=== PATIENT | female | born 1975 | race Two or more races ===

== ENCOUNTER → 2023-08-16 | Outpatient (CLI) | payer BC ==
[2023-08-16 09:47] LABS: Basophils # (auto) 0.1 10 ^3/uL (0-0.2); Eosinophils # (auto) 0.2 10 ^3/uL (0-0.8); Eosinophils % (auto) 2.7 % (0.0-7.0); Hemoglobin 13.6 g/dL (12.2-16.2); Lymphocytes % (auto) 22.9 % (10.0-50.0); Mean Corpuscular Hemoglobin 27.8 pg (28.0-32.0); Mean Corpuscular Hgb Conc. 32.4 g/dL (32.0-36.0); Mean Corpuscular Volume 85.7 fL (80.0-100.0); Monocytes # (auto) 0.4 10 ^3/uL (0-1.3); Monocytes % (auto) 4.8 % (0.0-12.0); Neutrophils # (auto) 6.1 10 ^3/uL (1.6-8.6); Neutrophils % (auto) 68.6 % (37.0-80.0); Red Blood Cells 4.91 10^6/uL (4.0-5.20); Red Cell Distribution Width 13.7 % (11.8-14.3); White Blood Cell 8.9 10^3/uL (4.4-10.8)
== END | disposition home or self-care (01) ==
LOC: LAB 09:31
DX: D72.829 Elevated white blood cell count, unspecified (principal); R25.2 Cramp and spasm
CPT/HCPCS: 36415; 82306; 83735; 85025

== ENCOUNTER → 2023-11-05 | Outpatient (CLI) | payer BC ==
[~2023-11-05] MED LIST: ALBUTEROL SULF 2.5 MG/0.5ML(0.5%) NEB SOLN ONE
== END | disposition home or self-care (01) ==
LOC: RT 08:45
PROVIDERS: ATTEND Internal Medicine Pulmonary Disease
DX: R06.02 Shortness of breath (principal); R06.09 Other forms of dyspnea
CPT/HCPCS: 94060; 94727; 94729

== ENCOUNTER 2024-03-15 18:07 | Emergency (ER) | payer BC, OTHER ==
[~2024-03-15] VITALS: Ht 152.4 cm; Wt 76.7 kg
[2024-03-15] MEDS ORDERED: ACE3T PO (18:44)
[2024-03-15] MEDS ORDERED: CYCL-614 PO (18:44)
[2024-03-15 18:48] VITALS: BP 141/82; PULSE 95; RESP 18; TEMP 97.9; O2SAT 99
[2024-03-15] MEDS: KETOROLAC TROMETH 60MG/2ML VIAL IM ONE (18:52)
== END 2024-03-15 19:52 | disposition home or self-care (01) ==
LOC: ER 18:07
DX: S46.911A Strain of unspecified muscle, fascia and tendon at shoulder and upper arm level, right arm, initial encounter (principal); K21.9 Gastro-esophageal reflux disease without esophagitis; E78.5 Hyperlipidemia, unspecified; X50.0XXA Overexertion from strenuous movement or load, initial encounter; Y93.89 Activity, other specified; Y92.69 Other specified industrial and construction area as the place of occurrence of the external cause; Y99.8 Other external cause status
CPT/HCPCS: 73030; 96372; 99283; J1885

== ENCOUNTER → 2024-05-22 | Outpatient (CLI) | payer BC ==
[~2024-05-22] MED LIST changes: +ACE3T PO; -ALBUTEROL SULF 2.5 MG/0.5ML(0.5%) NEB SOLN ONE; +CYCL-614 PO
[2024-05-22 07:40] LABS: Chloride 105 mmol/L (98-107); Sodium 138 mmol/L (136-145)
[2024-05-22 07:41] LABS: Anion Gap 7 (5-15); Calcium 9.5 mg/dL (8.7-10.4); Carbon Dioxide 26 mmol/L (20-31)
[2024-05-22 07:46] LABS: BUN/Creatinine Ratio 11.7 (10.0-20.0); Blood Urea Nitrogen 9 mg/dL (9-23); Glucose 116 mg/dL (74-106)
== END | disposition home or self-care (01) ==
LOC: LAB 07:04
PROVIDERS: ATTEND Nurse Practitioner Family
DX: D25.9 Leiomyoma of uterus, unspecified (principal)
CPT/HCPCS: 36415; 80048

== ENCOUNTER 2024-08-22 07:18 | Inpatient (IN) | payer BC, OTHER ==
[~2024-08-22] VITALS: Ht 152.4 cm; Wt 76.2 kg
[2024-08-22 07:25] VITALS: PULSE 102; RESP 18; O2SAT 96
--- NOTE | 2024-08-22 07:50 | DVH ---
EXAM: XR Chest, 1 View CLINICAL INDICATION: near syncope TECHNIQUE: Frontal view of the chest. COMPARISON: Comparison FINDINGS: LUNGS AND PLEURAL SPACES: Unremarkable. No consolidation. No pneumothorax. HEART: Unremarkable. No cardiomegaly. MEDIASTINUM: Unremarkable. Normal mediastinal contour. BONES/JOINTS: Unremarkable. No acute fracture. OTHER FINDINGS: . None. . . .. IMPRESSION: No acute cardiopulmonary process.
--- NOTE | 2024-08-22 07:55 | DVH ---
CLINICAL INFORMATION: 48 years old, Female; near syncope. TECHNIQUE: Axial imaging was obtained through the brain without contrast. Coronal and sagittal refor matted images were obtained, reviewed, and stored. Images were reviewed in brain and bone windows. A ll CT scans at this medical facility are performed using dose modulation techniques as appropriate to a performed exam including the following: Automated exposure control was utilized; adjustment of the MA and/or KV according to patient size; and use of iterative reconstruction technique. CTDIvol = 54.78 mGy DLP = 877 mGy-cm COMPARISON: None. FINDINGS: There is no acute intracranial hemorrhage or extraaxial fluid collection. No mass effect o r midline shift. The ventricles and sulci are within normal limits in size for age. Basal cisterns a re patent. The calvarium is unremarkable. Paranasal sinuses and mastoid air cells are clear. IMPRESSION: No CT evidence of acute intracranial abnormality.
[2024-08-22] MEDS: METOCLOPRAMIDE HCL 5MG/ml INJ 2ml VIAL IV ONE (08:03)
[2024-08-22] MEDS: SODIUM CHLORIDE 0.9% 1,000 ML IV ONE (08:09)
--- NOTE | 2024-08-22 08:09 | ED.PDOC ---
HPI (NEURO) HPI Comments 48 year old female presents to the ED with chief complaint of dizziness. Patient reports that she has been experiencing dizziness for the past 2-3 days, feeling like the room is spinning, even when laying down. Patient relays that she also had a headache with associated neck pain that occurred 2 days ago that has since resolved. Patient denies any N/V/D, chest pain, SOB, or syncope. Chief Complaint: Syncope Time Seen by MD: 08:02 Primary Care Provider: VENESSA Helms Notes: Nurses Notes, Medications, Allergies Information Source: Patient Mode of Arrival: Ambulatory Severity: Moderate Dizziness/Weakness Severity: Unable to do activities Headache Severity: Moderate Timing: Days Duration: Since onset Prehospital treatment: None Headache Quality: Aching Headache Location: Generalized Onset: At rest Circumstances: Spontaneous Symptoms: Near syncope, Vertigo History of: None Modifying factors: Nothing Associated Signs and Symptoms: Headache, Neck Pain Past Medical History PAST MEDICAL HISTORY: Asthma, GERD, High Lipids Past Medical History (Other): IBS Surgical History (Other): Hemorrhoidectomy [employer] History: Denies all [employer] Hx Family History Family History: Reviewed,noncontributory to illness, Unknown Social History Smoker: Non-Smoker Alcohol: Denies ETOH Use Drugs: Denies Drug Use Lives In: Home Constitutional: denies: chills, diaphoresis, fatigue, fever, malaise, sweats, weakness, others EENTM: denies: blurred vision, double vision, ear bleeding, ear discharge, ear drainage, ear pain, ear ringing, eye pain, eye redness, hearing loss, mouth pain, mouth swelling, nasal discharge, nose bleeding, nose congestion, nose pain, photophobia, tearing, throat pain, throat swelling, voice changes, others Respiratory: denies: cough, hemoptysis, orthopnea, SOB at rest, shortness of breath, SOB with excertion, stridor, wheezing, others Cardiovascular: denies: chest pain, dizzy spells, diaphoresis, Dyspnea on exertion, edema, irregular heart beat, left arm pain, lightheadedness, palpitations, PND, syncope, others Gastrointestinal: denies: abdomen distended, abdominal pain, blood streaked bowels, constipated, diarrhea, dysphagia, difficulty swallowing, hematemesis, melena, nausea, poor appetite, poor fluid intake, rectal bleeding, rectal pain, vomiting, others Genitourinary: denies: abnormal vagina bleeding, burning, dyspareunia, dysuria, flank pain, frequency, hematuria, incontinence, pain, , vagina discharge, urgency, others Neurological: reports: dizziness, headache; denies: fainting, left sided numbness, left sided weakness, numbness, paresthesia, pre-existing deficit, right sided numbness, right sided weakness, seizure, speech problems, tingling, tremors, weakness, others Musculoskeletal: reports: neck pain; denies: back pain, gout, joint pain, joint swelling, muscle pain, muscle stiffness, others Integumetry: denies: bruises, change in color, change in hair/nails, dryness, laceration, lesions, lumps, rash, wounds, others Allergic/Immunocompromised: denies: Difficulty Healing, Frequent Infections, Hives, Itching, others Hematologic/Lymphatic: denies: anemia, blood clots, easy bleeding, easy bruising, swollen glands, others Endocrine: denies: excessive hunger, excessive sweating, excessive thirst, excessive urination, flushing, intolerance to cold, intolerance to heat, unexplained weight gain, unexplained weight loss, others Psychiatric: denies: anxiety, bipolar disorder, depression, hopeless, panic disorder, schizophrenia, sleepless, suicidal, others All Other Systems: Reviewed and Negative Physical Exam General Appearance: No Apparent Distress, Normal HEENT: Normal ENT Inspection, PERRL/EOMI Neck: Full Range of Motion, Non-Tender, Normal, Normal Inspection Respiratory: Chest Non-Tender, Lungs Clear, No Accessory Muscle Use, No Respiratory Distress, Normal Breath Sounds Cardiovascular: No Edema, No JVD, No Murmur, No Gallop, Normal Peripheral Pulses, Regular Rate/Rhythm Breast Exam: Deferred Gastrointestinal: No Organomegaly, Non Tender, No Pulsatile Mass, Normal Bowel Sounds, Soft Genitalia: Deferred Pelvic: Deferred Rectal: Deferred Extremities: No calf tenderness, Normal capillary refill, Normal inspection, Normal range of motion, Non-tender, No pedal edema Musculoskeletal : Apperance: Normal Neurologic: Alert, machinist first class II-XII nml as Tested, No Motor Deficits, Normal Affect, Normal Mood, No Sensory Deficits Cerebellar Function: Normal Reflexes: Normal Skin: Dry, Normal Color, Warm Lymphatic: No Adenopathy Was a procedure done? Was a procedure done?: No Differential Diagnosis (SZ) Seizure: N/A CVA: Electrolyte Imbalance, Encephalopathy, Hypoglycemia, Hypoxemia General Weakness: Dehydration, Encephalopathy, Hypotension, Hypovolemia, TIA Headache: Migraine, Intracerebral Hemorrhage, Mass Lesion, Sinusitis X-Ray, Labs, Meds, VS Vital Signs Date Time Temp Pulse Resp B/P (MAP) Pulse Ox O2 Delivery O2 Flow Rate FiO2 08/22/24 09:30 98.5 81 20 137/88 (104) 96 98.5 08/22/24 07:47 92 08/22/24 07:31 97.9 102 18 153/92 (112) 96 08/22/24 07:25 102 18 96 Room Air* 0 21 08/22/24 07:25 97.9 102 18 153/92 (112) 96 97.9 Lab Test 08/22/24 08:08 08/22/24 07:25 Range/Units White Blood Count 9.3 4.4-10.8 10^3/uL Red Blood Count 5.03 4.0-5.20 10^6/uL Hemoglobin 14.0 12.2-16.2 g/dL Hematocrit 41.9 36.0-46.0 % Mean Corpuscular Volume 83.4 80.0-100.0 fL Mean Corpuscular Hemoglobin 28.0 28.0-32.0 pg Mean Corpuscular Hemoglobin Concent 33.5 32.0-36.0 g/dL Red Cell Distribution Width 13.8 11.8-14.3 % Platelet Count 428 140-450 10^3/uL Mean Platelet Volume 8.2 6.9-10.8 fL Neutrophils (%) (Auto) 66.1 37.0-80.0 % Lymphocytes (%) (Auto) 25.5 10.0-50.0 % Monocytes (%) (Auto) 5.7 0.0-12.0 % Eosinophils (%) (Auto) 1.9 0.0-7.0 % Basophils (%) (Auto) 0.8 0.0-2.0 % Neutrophils # (Auto) 6.1 1.6-8.6 10 ^3/uL Lymphocytes # (Auto) 2.4 0.4-5.4 10 ^3/uL Monocytes # (Auto) 0.5 0-1.3 10 ^3/uL Eosinophils # (Auto) 0.2 0-0.8 10 ^3/uL Basophils # (Auto) 0.1 0-0.2 10 ^3/uL Nucleated Red Blood Cells 0.1 % Sodium Level 138 136-145 mmol/L Potassium Level 3.3 L 3.5-5.1 mmol/L Chloride Level 102 98-107 mmol/L Carbon Dioxide Level 27 20-31 mmol/L Anion Gap 9 5-15 Blood Urea Nitrogen 9 9-23 mg/dL Creatinine 0.69 0.550-1.02 mg/dL Glomerular Filtration Rate Calc 107 >90 mL/min BUN/Creatinine Ratio 13.0 10.0-20.0 Serum Glucose 146 H 74-106 mg/dL Calcium Level 10.2 8.7-10.4 mg/dL Troponin I High Sensitivity < 3 L </=34 ng/L Urine Color Colorless Yellow Urine Clarity Clear Clear Urine pH 5.5 5.0-9.0 Urine Specific Vivian 1.005 1.001-1.035 Urine Protein Negative Negative Urine Ketones Negative Negative Urine Blood Negative Negative /uL Urine Nitrite Negative Negative Urine Bilirubin Negative Negative Urine Urobilinogen Normal Negative mg/dL Urine Leukocyte Esterase Negative Negative /uL Urine RBC None seen 0 - 4 /hpf Urine Microscopic WBC 0-5 /HPF Urine Squamous Epithelial Cells None seen <5 /hpf Urine Bacteria None seen None Seen /hpf Urine Glucose Normal Normal mg/dL POC Glucose 152 H 70-106 mg/dl Current Medications Medications (Trade) Dose Ordered Sig/Greg Route Start Time Stop Time Status Last Admin Sodium Chloride 1,000 ml @ 1,000 mls/hr Q1H ONCE IV 08/22/24 07:30 08/22/24 08:29 DC 08/22/24 08:09 Metoclopramide HCl (Reglan Injection) 10 mg ONCE ONCE IV 08/22/24 07:30 08/22/24 07:31 DC 08/22/24 08:03 Time of 1ST Reevaluation: 09:02 Reevaluation 1ST: Unchanged Patient Education/Counseling: Diagnosis, Treatment Family Education/Counseling: No Family Present Additional Information I reviewed the following notes from patient's past medical encounters: 03/15/24 for Rt shoulder strain The following tests were ordered, and results were reviewed by me: CT Head, Chest XR, CBC, BMP, UA, Troponin, EKG I reviewed and agreed with the following test results read by other providers: CT Head, Chest XR Additional Information was gathered from interviewing the following independent historians: None I discussed treatment and results with medical personnel. Departure 1 Departure Time of Disposition: 10:35 (Patient presented with near-syncope syncope and disequilibrium today and should be admitted. Data: 1. I ordered and reviewed the result of at least 3 labs including a CBC, BMP, and troponin. 2. I independently interpreted the following tests: EKG which shows a normal sinus and a chest x- ray which shows benign chest and a CT head which shows benign brain.Risk:This patient has a high risk of morbidity due to further diagnostic testing or treatment and may suffer from an acute cardiac, neurologic, or infectious disorder. Rationale: Patient should be admitted to the hospital for further management.) Impression: Primary Impression: Near syncope Additional Impression: Dizziness Disposition: 09 ADMITTED INPATIENT Admit to: Med Surg Condition: Serious Critical Care Note Critical Care Time?: Yes Critical care comment: Near-syncope Authorized and Performed by: Lana Bautista MD Total critical care time: Approximately 39 minutes Due to a high probability of clinically significant, life threatening deterioration, the patient required my highest level of preparedness to intervene emergently and I personally spent this critical care time directly and personally managing the patient. This critical care time included obtaining a history; examining the patient; pulse oximetry; ordering and review of studies; arranging urgent treatment with development of a management plan; evaluation of patient's response to treatment; frequent reassessment; and, discussions with other providers. This critical care time was performed to assess and manage the high probability of imminent, life-threatening deterioration that could result in multi-organ failure. It was exclusive of separately billable procedures and treating other patients and teaching time. Please see my other sections and the rest of the note for further information on patient assessment and treatment. Stability Stability form required: No Heart Score Heart Score: Heart Score Response (Comments) Value History N/A 0 EKG N/A 0 Age N/A 0 Risk Factors N/A 0 Troponin N/A 0 Total 0 I personally scribed for LANA BAUTISTA MD ([email or web address]) on 08/22/24 at 08:09. Electronically submitted by Dane Ibarra ([email or web address]). LANA BAUTISTA MD Aug 22, 2024 08:09
[2024-08-22 08:39] LABS: Urine Bacteria None Seen /hpf (None Seen)
[2024-08-22 09:00] LABS: Chloride 102 mmol/L (98-107); Sodium 138 mmol/L (136-145)
[2024-08-22 09:01] LABS: Anion Gap 9 (5-15); Calcium 10.2 mg/dL (8.7-10.4); Carbon Dioxide 27 mmol/L (20-31)
[2024-08-22 09:05] LABS: Urine Blood Negative /uL (Negative); Urine Clarity Clear (Clear); Urine Color Colorless (Yellow); Urine Protein, UAD Negative (Negative); Urine Specific Gravity 1.005 (1.001-1.035); Urine Squamous Epithelial Cell None Seen /hpf (<5); Urine Urobilinogen Normal (Negative); Urine pH 5.5 (5.0-9.0)
[2024-08-22 09:05] LABS: Basophils # (auto) 0.1 10 ^3/uL (0-0.2); Basophils % (auto) 0.8 % (0.0-2.0); Eosinophils # (auto) 0.2 10 ^3/uL (0-0.8); Eosinophils % (auto) 1.9 % (0.0-7.0); Hematocrit 41.9 % (36.0-46.0); Lymphocytes # (auto) 2.4 10 ^3/uL (0.4-5.4); Lymphocytes % (auto) 25.5 % (10.0-50.0); Mean Corpuscular Hgb Conc. 33.5 g/dL (32.0-36.0); Mean Corpuscular Volume 83.4 fL (80.0-100.0); Monocytes # (auto) 0.5 10 ^3/uL (0-1.3); Monocytes % (auto) 5.7 % (0.0-12.0); Neutrophils # (auto) 6.1 10 ^3/uL (1.6-8.6); Neutrophils % (auto) 66.1 % (37.0-80.0); Nucleated Red Blood Cells % 0.1 %; Platelet Count (auto) 428 10^3/uL (140-450); Red Blood Cells 5.03 10^6/uL (4.0-5.20); Red Cell Distribution Width 13.8 % (11.8-14.3); White Blood Cell 9.3 10^3/uL (4.4-10.8)
[2024-08-22 09:06] LABS: Blood Urea Nitrogen 9 mg/dL (9-23)
[2024-08-22 09:33] LABS: Glucose 146 mg/dL (74-106); Potassium 3.3 mmol/L (3.5-5.1)
[2024-08-22] MEDS ORDERED: DOCUSATE SOD 100 MG CAP PO PRN (11:15)
[2024-08-22] MEDS ORDERED: HYDROcodone-ACET 5/325MG TAB PO PRN (11:15)
[2024-08-22] MEDS ORDERED: ONDANSETRON HCL 4 MG/2 ML VIAL IV PRN (11:15)
[2024-08-22] MEDS ORDERED: ACETAMINOPHEN 325 MG TAB PO PRN (11:15)
[2024-08-22] MEDS ORDERED: LEVO25TA6 PO (11:20)
[2024-08-22] MEDS ORDERED: DICY10CA PO (11:21)
[2024-08-22] MEDS ORDERED: FENO160T PO (11:21)
[2024-08-22] MEDS ORDERED: PANT40T PO (11:21)
--- NOTE | 2024-08-22 11:32 | DVHHP2 ---
History of Present Illness Reason for Visit: Near syncope History of Present Illness Melly Oakley is a 48-year-old female with past medical history of hypertension, IBS, GERD, and hypothyroidism, who comes to the ER with complaints of near syncope. Patient states that she has been experiencing dizziness and near syncopal episodes for the last 3 days. She states that is has been worsening, and that while at work today she had a near syncopal event. Cardiovascular: hyperipidemia Pulmonary: Asthma GI: GERD, Irritable bowel disease Endocrine: Hypothyroidism Past Surgical History: Other (hemorrhoidectomy) Review of Systems Constitutional: No: Fever, Chills, Sweats, Weakness, Malaise, Other Eyes: No: Pain, Vision change, Conjunctivae inflammation, Eyelid inflammation, Other, Redness ENT: No: Ear pain, Ear discharge, Nose pain, Nose discharge, Nose congestion, Mouth pain, Mouth swelling, Throat pain, Throat swelling, Other Respiratory: No: Cough, Dry, Shortness of breath, SOB with excertion, Wheezing, Hemoptysis, Pleuritic Pain, Sputum, Wheezing, Other Cardiovascular: No: Chest Pain, Palpitations, Orthopnea, Paroxysmal Noc. Dyspnea, Edema, Lt Headedness, Other Gastrointestinal: No: Nausea, Vomiting, Abdominal Pain, Diarrhea, Constipation, Melena, Hematochezia, Other Genitourinary: No Dysuria, No Frequency, No Incontinence, No Hematuria, No Retention, No Other Musculoskeletal: No: other, neck pain, shoulder pain, arm pain, back pain, hand pain, leg pain, foot pain Skin: No: Rash, Lesions, Jaundice, Bruising, Other Neurological: Incoordination, Other (dizziness); No: Weakness, Numbness, Change in speech, Confusion, Seizures Allergies: Coded Allergies: No Known Drug Allergy (Verified Allergy, Unknown, 03/15/24) Medications Current Medications Medications Dose Ordered Sig/Greg Route Start Time Stop Time Status Last Admin Dose Admin Sodium Chloride 10 ml Q8HR IV 08/22/24 14:00 UNV Acetaminophen/ Hydrocodone Bitart 1 tab Q4HP PRN PO 08/22/24 11:15 UNV Ondansetron HCl 4 mg Q4HP PRN IV 08/22/24 11:15 UNV Docusate Sodium 100 mg BIDPRN PRN PO 08/22/24 11:15 UNV Acetaminophen 650 mg Q6HP PRN PO 08/22/24 11:15 UNV Meclizine HCl 25 mg Q8HPRN PRN PO 08/22/24 11:15 UNV Exam Vital Signs Vital Signs Date Time Temp Pulse Resp B/P (MAP) Pulse Ox O2 Delivery O2 Flow Rate FiO2 08/22/24 09:30 98.5 81 20 137/88 (104) 96 98.5 08/22/24 07:25 Room Air* 0 21 General Appearance: Alert, Oriented X3, Cooperative, mild distress HEENT: Atraumatic, PERRLA Respiratory: Clear to auscultation, Normal air movement Cardiovascular: Regular rate, Normal S1, Normal S2, No murmurs Abdominal: Normal bowel sounds, Soft, No tenderness Extremities: No clubbing, No cyanosis, No edema, Normal pulses Skin: No rashes, No breakdown, No significant lesion Neuro: Normal gait, Normal speech, Strength at 5/5 X4 ext, Other (dizzness when moving) Psych/Mental Status: Mental status NL, Mood NL Labs/Xrays Labs Test 08/22/24 08:08 08/22/24 07:25 Range/Units White Blood Count 9.3 4.4-10.8 10^3/uL Red Blood Count 5.03 4.0-5.20 10^6/uL Hemoglobin 14.0 12.2-16.2 g/dL Hematocrit 41.9 36.0-46.0 % Mean Corpuscular Volume 83.4 80.0-100.0 fL Mean Corpuscular Hemoglobin 28.0 28.0-32.0 pg Mean Corpuscular Hemoglobin Concent 33.5 32.0-36.0 g/dL Red Cell Distribution Width 13.8 11.8-14.3 % Platelet Count 428 140-450 10^3/uL Mean Platelet Volume 8.2 6.9-10.8 fL Neutrophils (%) (Auto) 66.1 37.0-80.0 % Lymphocytes (%) (Auto) 25.5 10.0-50.0 % Monocytes (%) (Auto) 5.7 0.0-12.0 % Eosinophils (%) (Auto) 1.9 0.0-7.0 % Basophils (%) (Auto) 0.8 0.0-2.0 % Neutrophils # (Auto) 6.1 1.6-8.6 10 ^3/uL Lymphocytes # (Auto) 2.4 0.4-5.4 10 ^3/uL Monocytes # (Auto) 0.5 0-1.3 10 ^3/uL Eosinophils # (Auto) 0.2 0-0.8 10 ^3/uL Basophils # (Auto) 0.1 0-0.2 10 ^3/uL Nucleated Red Blood Cells 0.1 % Sodium Level 138 136-145 mmol/L Potassium Level 3.3 L 3.5-5.1 mmol/L Chloride Level 102 98-107 mmol/L Carbon Dioxide Level 27 20-31 mmol/L Anion Gap 9 5-15 Blood Urea Nitrogen 9 9-23 mg/dL Creatinine 0.69 0.550-1.02 mg/dL Glomerular Filtration Rate Calc 107 >90 mL/min BUN/Creatinine Ratio 13.0 10.0-20.0 Serum Glucose 146 H 74-106 mg/dL Calcium Level 10.2 8.7-10.4 mg/dL Troponin I High Sensitivity < 3 L </=34 ng/L Urine Color Colorless Yellow Urine Clarity Clear Clear Urine pH 5.5 5.0-9.0 Urine Specific Duck 1.005 1.001-1.035 Urine Protein Negative Negative Urine Ketones Negative Negative Urine Blood Negative Negative /uL Urine Nitrite Negative Negative Urine Bilirubin Negative Negative Urine Urobilinogen Normal Negative mg/dL Urine Leukocyte Esterase Negative Negative /uL Urine RBC None seen 0 - 4 /hpf Urine Microscopic WBC 0-5 /HPF Urine Squamous Epithelial Cells None seen <5 /hpf Urine Bacteria None seen None Seen /hpf Urine Glucose Normal Normal mg/dL POC Glucose 152 H 70-106 mg/dl Head CT: COMPARISON: None. FINDINGS: There is no acute intracranial hemorrhage or extraaxial fluid collection. No mass effect or midline shift. The ventricles and sulci are within normal limits in size for age. Basal cisterns are patent. The calvarium is unremarkable. Paranasal sinuses and mastoid air cells are clear. IMPRESSION: No CT evidence of acute intracranial abnormality. EXAM: XR Chest, 1 View FINDINGS: LUNGS AND PLEURAL SPACES: Unremarkable. No consolidation. No pneumothorax. HEART: Unremarkable. No cardiomegaly. MEDIASTINUM: Unremarkable. Normal mediastinal contour. BONES/JOINTS: Unremarkable. No acute fracture. OTHER FINDINGS: . None. . . .. IMPRESSION: No acute cardiopulmonary process. Assessment/Plan Assessment/Plan Assessment: Near syncope, Possible Vertigo, Hyperlipidemia, Hypothyroidism, IBS, GERD, Plan: Admit to Med-Surg, IV hydration, Start meclizine, Consider neurologist consult if symptoms do not improve, Manage/Monitor electrolytes, TSH in am, Home medications reconciled, Plan discussed with: Patient My Orders Orders - DELMY SINHA Procedure Category Date Status Time Admit ADMIT 08/22/24 Transmitted 11:12 Code Status CODE 08/22/24 Transmitted 11:12 Sodium Chloride Lock PHA 08/22/24 Logged (Saline Lock Ns) 14:00 Hydrocodone-Acet PHA 08/22/24 Logged 5/325mg Tab ([place] 11:15 Ondansetron Hcl PHA 08/22/24 Logged (Zofran) 11:15 Docusate Sodium PHA 08/22/24 Logged Capsule (Colace 11:15 Fall Risk Precautions FIDENCIO 08/22/[address] 11:12 Complete Blood Count LAB 08/23/24 Verified 04:00 Comprehensive LAB 08/23/24 Verified Metabolic Panel 04:00 Cardiac DIET 08/22/24 Transmitted Diet-2gna,Lofat,Lochol Lunch Condition: Serious FIDENCIO 08/22/24 In Process 11:12 Acetaminophen Tablet PHA 08/22/24 Logged (Tylenol Tablet) 11:15 Meclizine Tablet PHA 08/22/24 Logged (Antivert Tablet) 11:15 Meclizine Tablet PHA 08/22/24 Logged (Antivert Tablet) 11:15 Date of Service: Aug 22, 2024 Billing Provider: DELMY SINHA Common Visit Codes: [id number] INP/OBS CARE (MOD) DELMY SINHA Aug 22, 2024 11:32
[2024-08-22] MEDS: MECLIZINE HCL 25 MG TAB PO ONE (11:55)
[2024-08-22] MEDS: KETOROLAC TROMETH 30 MG/ML 1ML VIAL IV ONE (11:55)
[2024-08-22 12:52] VITALS: BP 153/77; PULSE 78; RESP 18; TEMP 97.9; O2SAT 99
[2024-08-22 12:53] VITALS: PULSE 84; RESP 18; O2SAT 96
[2024-08-22] MEDS: PANTOPRAZOLE 40 MG TAB PO SCH (13:22)
[2024-08-22] MEDS: DICYCLOMINE HCL 10 MG CAP PO SCH (13:36)
[2024-08-22] MEDS ORDERED: ONDA-188 (13:50)
[2024-08-22] MEDS ORDERED: MONT-8 (13:50)
[2024-08-22] MEDS: SODIUM CHLOR 0.9% PF (SALINE LOCK) 10ML VIAL/SYR IV SCH (14:00)
--- NOTE | 2024-08-22 15:10 | ECG ---
[facility] Test Date: 2024-08-22 Test Time: 07:47:55 Pat Name: ADRIAN RYAN Department: ED Room: [address] [place] [address] Gender: F Quality Improvement Consultant: ARPAN : 1975 Requested By: LANA BAUTISTA Order Number: [id number] Reading MD: Measurements Intervals [place] Rate: 92 P: 32 CA: 144 QRS: -28 QRSD: 97 T: 62 QT: 365 QTc: 452 Interpretive Statements Sinus rhythm Borderline left axis deviation RSR' in V1 or V2, probably normal variant Please click the below link to view image of tracing.
[2024-08-22 16:09] VITALS: BP 118/47; PULSE 78; RESP 16; TEMP 98; O2SAT 99
[2024-08-22] MEDS: POTASSIUM CHL 20 Meq TABLET PO ONE (18:15)
[2024-08-22 20:28] VITALS: BP 141/77; PULSE 93; RESP 18; TEMP 98.1; O2SAT 97
[2024-08-23 00:55] VITALS: BP 142/81; PULSE 89; RESP 18; TEMP 98.3; O2SAT 98
[2024-08-23 05:00] VITALS: BP 125/71; PULSE 83; RESP 18; TEMP 98.3; O2SAT 99
[2024-08-23 07:17] LABS: Alanine Aminotransferase 24 U/L (7-40); Albumin 4.1 g/dL (3.2-4.8); Alkaline Phosphatase 46 U/L (46-116); Anion Gap 7 (5-15); Aspartate Aminotransferase 14 U/L (13-40); BUN/Creatinine Ratio 14.5 (10.0-20.0); Basophils # (auto) 0.1 10 ^3/uL (0-0.2); Blood Urea Nitrogen 10 mg/dL (9-23); Calcium 9.5 mg/dL (8.7-10.4); Carbon Dioxide 27 mmol/L (20-31); Chloride 104 mmol/L (98-107); Eosinophils # (auto) 0.3 10 ^3/uL (0-0.8); Glucose 91 mg/dL (74-106); Lymphocytes # (auto) 2.2 10 ^3/uL (0.4-5.4); Magnesium 1.8 mg/dL (1.6-2.6); Monocytes # (auto) 0.5 10 ^3/uL (0-1.3); Monocytes % (auto) 6.2 % (0.0-12.0); Neutrophils # (auto) 5.4 10 ^3/uL (1.6-8.6); Nucleated Red Blood Cells % 0.1 %; Potassium 3.7 mmol/L (3.5-5.1); Sodium 138 mmol/L (136-145); White Blood Cell 8.5 10^3/uL (4.4-10.8)
[2024-08-23 07:18] LABS: Basophils % (auto) 0.7 % (0.0-2.0); Bilirubin, Total 0.4 mg/dL (0.2-1.0); Eosinophils % (auto) 3.7 % (0.0-7.0); Hemoglobin 13.3 g/dL (12.2-16.2); Lymphocytes % (auto) 26.1 % (10.0-50.0); Mean Corpuscular Hemoglobin 27.1 pg (28.0-32.0); Mean Corpuscular Hgb Conc. 32.4 g/dL (32.0-36.0); Mean Corpuscular Volume 83.7 fL (80.0-100.0); Neutrophils % (auto) 63.3 % (37.0-80.0); Platelet Count (auto) 408 10^3/uL (140-450); Red Cell Distribution Width 13.6 % (11.8-14.3); Total Protein 6.8 g/dL (5.7-8.2)
[2024-08-23 08:00] VITALS: PULSE 78; RESP 18; O2SAT 98
[2024-08-23 08:57] VITALS: BP 123/72; PULSE 78; RESP 16; TEMP 98.6; O2SAT 95
[2024-08-23] MEDS: Fenofibrate 160MG TABLETS PO SCH (09:25)
[2024-08-23] MEDS: LEVOTHYROXINE SODIUM 25 MCG TAB PO SCH (09:25)
[2024-08-23] MEDS: MECLIZINE HCL 25 MG TAB PO PRN (09:29)
--- NOTE | 2024-08-23 15:04 | DVHDS2 ---
Discharge Summary Date of Admission Aug 22, 2024 at 11:12 Date of Discharge: Aug 23, 2024 Admitting Diagnosis Dizziness with near-syncope Labs/Diagnostic Data: Laboratory Results Test 08/23/24 06:16 08/22/24 08:08 08/22/24 07:25 White Blood Count 8.5 10^3/uL (4.4-10.8) Red Blood Count 4.90 10^6/uL (4.0-5.20) Hemoglobin 13.3 g/dL (12.2-16.2) Hematocrit 41.0 % (36.0-46.0) Mean Corpuscular Volume 83.7 fL (80.0-100.0) Mean Corpuscular Hemoglobin 27.1 pg (28.0-32.0) Mean Corpuscular Hemoglobin Concent 32.4 g/dL (32.0-36.0) Red Cell Distribution Width 13.6 % (11.8-14.3) Platelet Count 408 10^3/uL (140-450) Mean Platelet Volume 8.3 fL (6.9-10.8) Neutrophils (%) (Auto) 63.3 % (37.0-80.0) Lymphocytes (%) (Auto) 26.1 % (10.0-50.0) Monocytes (%) (Auto) 6.2 % (0.0-12.0) Eosinophils (%) (Auto) 3.7 % (0.0-7.0) Basophils (%) (Auto) 0.7 % (0.0-2.0) Neutrophils # (Auto) 5.4 10 ^3/uL (1.6-8.6) Lymphocytes # (Auto) 2.2 10 ^3/uL (0.4-5.4) Monocytes # (Auto) 0.5 10 ^3/uL (0-1.3) Eosinophils # (Auto) 0.3 10 ^3/uL (0-0.8) Basophils # (Auto) 0.1 10 ^3/uL (0-0.2) Nucleated Red Blood Cells 0.1 % Sodium Level 138 mmol/L (136-145) Potassium Level 3.7 mmol/L (3.5-5.1) Chloride Level 104 mmol/L (98-107) Carbon Dioxide Level 27 mmol/L (20-31) Anion Gap 7 (5-15) Blood Urea Nitrogen 10 mg/dL (9-23) Creatinine 0.69 mg/dL (0.550-1.02) Glomerular Filtration Rate Calc 107 mL/min (>90) BUN/Creatinine Ratio 14.5 (10.0-20.0) Serum Glucose 91 mg/dL (74-106) Calcium Level 9.5 mg/dL (8.7-10.4) Magnesium Level 1.8 mg/dL (1.6-2.6) Total Bilirubin 0.4 mg/dL (0.2-1.0) Aspartate Amino Transferase (AST) 14 U/L (13-40) Alanine Aminotransferase (ALT) 24 U/L (7-40) Alkaline Phosphatase 46 U/L (46-116) Total Protein 6.8 g/dL (5.7-8.2) Albumin 4.1 g/dL (3.2-4.8) Thyroid Stimulating Hormone (TSH) 4.29 uIU/mL (0.55-4.78) Troponin I High Sensitivity < 3 ng/L (</=34) Urine Color Colorless (Yellow) Urine Clarity Clear (Clear) Urine pH 5.5 (5.0-9.0) Urine Specific [place] 1.005 (1.001-1.035) Urine Protein Negative (Negative) Urine Ketones Negative (Negative) Urine Blood Negative /uL (Negative) Urine Nitrite Negative (Negative) Urine Bilirubin Negative (Negative) Urine Urobilinogen Normal mg/dL (Negative) Urine Leukocyte Esterase Negative /uL (Negative) Urine RBC None seen /hpf (0 - 4) Urine Microscopic WBC /HPF (0-5) Urine Squamous Epithelial Cells None seen /hpf (<5) Urine Bacteria None seen /hpf (None Seen) Urine Glucose Normal mg/dL (Normal) POC Glucose 152 mg/dl (70-106) Other Laboratory Tests 08/23/24 06:16 Brief Hx & Hospital Course: HPI Comments 48 year old female presents to the ED with chief complaint of dizziness. Patient reports that she has been experiencing dizziness for the past 2-3 days, feeling like the room is spinning, even when laying down. Patient relays that she also had a headache with associated neck pain that occurred 2 days ago that has since resolved. Patient denies any N/V/D, chest pain, SOB, or syncope. Course of hospitalization: CT scan of the head was negative for any acute pathology. All lab work is unremarkable. Further history of the patient was obtained, with the patient stating that her dizziness is worse with turning her head as well as changing her position from a sitting to standing position. All diagnostic tests were discussed with the patient. Patient was explained the signs and symptoms of benign paroxysmal positional vertigo. Patient was given pamphlet on how to perform Naomi maneuver exercises to alleviate her symptoms. Patient was agreeable to be discharged home and continue aplg-[id number] meclizine 25 mg p.o. q.8 hours as needed. Questions answered. Physical examination General: Alert and Oriented x3. No acute distress. Well-nourished. Eyes: EOMI. Anicteric. HENT: Moist mucous membranes. Lungs: Clear to auscultation bilaterally. No accessory muscle use. Cardiovascular: Regular rate and rhythm. No murmur. No JVD. Abdomen: Soft, non-tender and non-distended. No palpable masses. Extremities: No edema. Non-tender. Skin: No rashes or lesions. Warm. Neurologic: No focal neurological deficits. CN II-XII grossly intact, but not individually tested. Psychiatric: Cooperative. Appropriate mood and affect. Total time spent with patient discussing and formulating plan of care: 35 minutes. This medical document was created using an electronic medical record system with [employer] dictation system. Although this document has been carefully reviewed, there may still be some phonetic and typographical errors. These areas are purely typographical due to imperfections of the software programs, and do not reflect any compromise in the patient's medical care. Condition at Discharge: Fair Final Diagnosis/Problems List BPPV Secondary diagnosis Obesity Dyslipidemia IBS Discharge Disposition: Home Discharge Instruct/Medications Diet: Regular Activity: No Restrictions, As Tolerated Follow Up/Referral: Follow up with the PCP in 1-2 weeks Medications: Meclizine 25 mg p.o. q.8 hours as needed for dizziness 36 Discharge Statement: "Patient was advised to return to the ER or call 911 if any headaches, dizziness, shortness of breath, chest pain, abdominal pain, bleeding, fevers, or worsening of medical condition. Patient was counseled about treatment plan, medications, possible side effects, patientverbalized understanding. All questions were answered to the best of my ability. This discharge took greater then 30 minutes in planning, reviewing documentation, counseling the patient, and discussing with other team members." ASSESSMENT ASSESSMENT Assessment BPPV Date of Service: Aug 23, 2024 Billing Provider: CARLIE PECK NP Common Visit Codes: 29939-NBY/OBS DISCH DAY >30min CARLIE PECK NP Aug 23, 2024 15:04
[2024-08-23 15:14] VITALS: BP 130/76; PULSE 78; RESP 16; TEMP 98.6; O2SAT 95
== END 2024-08-23 16:10 | disposition home or self-care (01) | DRG 149 ==
LOC: ER 07:18 → EEVIPCON 07:18 → OVERFLOW 11:12 → EAST 20:25
PROVIDERS: ADMIT Nurse Practitioner Family; ATTEND Nurse Practitioner Acute Care
DX: R42 Dizziness and giddiness (principal); K58.9 Irritable bowel syndrome, unspecified; K21.9 Gastro-esophageal reflux disease without esophagitis; E03.9 Hypothyroidism, unspecified; I10 Essential (primary) hypertension; E78.5 Hyperlipidemia, unspecified; J45.909 Unspecified asthma, uncomplicated; E66.9 Obesity, unspecified; Z68.32 Body mass index [BMI] 32.0-32.9, adult
CPT/HCPCS: 36415; 70450; 71045; 80048; 80053; 81001; 82962; 83735; 84443; 84484; 85025; 93005; 99291; G0378; J1885

== ENCOUNTER → 2024-09-12 | Outpatient (CLI) | payer BC ==
[~2024-09-12] MED LIST changes: -ACE3T PO; -CYCL-614 PO; +DICY10CA PO; +FENO160T PO; +LEVO25TA6 PO; +MONT-8; +ONDA-188; +PANT40T PO
[2024-09-12 08:45] LABS: Alanine Aminotransferase 25 U/L (7-40); Anion Gap 7 (5-15); BUN/Creatinine Ratio 16.1 (10.0-20.0); Blood Urea Nitrogen 15 mg/dL (9-23); Calcium 9.2 mg/dL (8.7-10.4); Carbon Dioxide 26 mmol/L (20-31); Chloride 106 mmol/L (98-107); Potassium 3.8 mmol/L (3.5-5.1); Sodium 139 mmol/L (136-145); Total Protein 7.7 g/dL (5.7-8.2)
[2024-09-12 08:46] LABS: Albumin 4.6 g/dL (3.2-4.8); HDL Cholesterol 42 mg/dL (40-59)
[2024-09-12 08:49] LABS: Aspartate Aminotransferase < 8 U/L (13-40); Basophils # (auto) 0.1 10 ^3/uL (0-0.2); Basophils % (auto) 1.1 % (0.0-2.0); Bilirubin, Total 0.2 mg/dL (0.2-1.0); Cholesterol 202 mg/dL (< 200); Eosinophils # (auto) 0.4 10 ^3/uL (0-0.8); Eosinophils % (auto) 5.9 % (0.0-7.0); Glucose 119 mg/dL (74-106); Hematocrit 39.5 % (36.0-46.0); Hemoglobin 13.3 g/dL (12.2-16.2); LDL Cholesterol 144 mg/dL (< 100); Lymphocytes # (auto) 2.4 10 ^3/uL (0.4-5.4); Lymphocytes % (auto) 34.2 % (10.0-50.0); Mean Corpuscular Hemoglobin 27.9 pg (28.0-32.0); Mean Corpuscular Hgb Conc. 33.8 g/dL (32.0-36.0); Mean Corpuscular Volume 82.6 fL (80.0-100.0); Monocytes # (auto) 0.4 10 ^3/uL (0-1.3); Monocytes % (auto) 5.6 % (0.0-12.0); Neutrophils # (auto) 3.7 10 ^3/uL (1.6-8.6); Neutrophils % (auto) 53.2 % (37.0-80.0); Nucleated Red Blood Cells % 0.1 %; Platelet Count (auto) 410 10^3/uL (140-450); Red Blood Cells 4.78 10^6/uL (4.0-5.20); Triglycerides 155 mg/dL (< 150); White Blood Cell 6.9 10^3/uL (4.4-10.8)
[2024-09-12 10:13] LABS: Alkaline Phosphatase 58 U/L (46-116)
== END | disposition home or self-care (01) ==
LOC: LAB 08:00
PROVIDERS: ATTEND Nurse Practitioner Family
DX: E55.9 Vitamin D deficiency, unspecified (principal); R73.03 Prediabetes
CPT/HCPCS: 36415; 80053; 80061; 82043; 82306; 83036; 84443; 85025

== ENCOUNTER 2025-05-01 14:31 | Emergency (ER) | payer BC ==
[~2025-05-01] VITALS: Ht 152.4 cm; Wt 73.0 kg
[2025-05-01 15:15] LABS: Hematocrit 42.7 % (36.0-46.0); Hemoglobin 14.3 g/dL (12.2-16.2); Mean Corpuscular Hemoglobin 27.4 pg (28.0-32.0); Mean Corpuscular Volume 82.0 fL (80.0-100.0); Nucleated Red Blood Cells % 0.1 %
--- NOTE | 2025-05-01 15:21 | DVH ---
Indication: pain Technique: XY R KNEE 3V XRAYXY Comparison: None FINDINGS/IMPRESSION: No radiographic evidence for acute fracture or dislocation. There is [id number]-[id number] tricompartment al degenerative joint disease. Enthesopathy at quadriceps insertion upon the patella. Moderate supr apatellar effusion.
[2025-05-01 15:25] LABS: Chloride 103 mmol/L (98-107); Potassium 3.8 mmol/L (3.5-5.1); Sodium 139 mmol/L (136-145)
[2025-05-01 15:26] LABS: Anion Gap 9 (5-15); Calcium 9.1 mg/dL (8.7-10.4); Carbon Dioxide 27 mmol/L (20-31)
[2025-05-01 15:31] LABS: BUN/Creatinine Ratio 18.6 (10.0-20.0); Blood Urea Nitrogen 13 mg/dL (9-23); Glucose 78 mg/dL (74-106)
--- NOTE | 2025-05-01 15:44 | ED.PDOC ---
Musculoskeletal HPI Comments 49-year-old female that presents to the ED chief complaint of left leg pain. Patient states she has been having left leg pain with numbness symptomatic for the past one week. Patient states that she is having inability to flex the left leg in his had difficulty ambulating since. Patient denies any associated trauma or injury. Patient was seen at urgent care earlier today and was sent to the ED for possible rule out DVT of the left leg. Patient with the ED otherwise denies shortness of breath chest pain palpitations diaphoresis or any associated symptoms. Patient otherwise has been taking Celebrex which she states has provided some relief but only for the past one day.Patient otherwise has stable vitals in the ED. Patient denies any other symptoms at this time. Chief Complaint: Lower Extremity Time Seen by MD: 15:41 Primary Care Provider: VENESSA Reviewed Notes: Medications, Allergies Allergies: Coded Allergies: No Known Drug Allergy (Verified Allergy, Unknown, 03/15/24) Home Meds Reported Medications Ondansetron HCl (Ondansetron Hydrochloride) 4 Mg Tab 08/22/24 Montelukast Sodium (MONTELUKAST SODIUM) 10 Mg Tab, 1 DAILY 08/22/24 Dicyclomine Hcl (BENTYL CAPSULE) 10 Mg Cp, 1 TAB PO TID 08/22/24 Pantoprazole Sodium Sesquihydr (Pantoprazole Sodium) 40 Mg Tab, 1 TAB PO DAILY 08/22/24 Fenofibrate (Fenofibrate) 160 Mg Tab, 1 TAB PO DAILY 08/22/24 Levothyroxine Sodium (Levothyroxine Sodium) 25 Mcg Tab, 1 TAB PO DAILY 08/22/24 Information Source: Patient Mode of Arrival: Wheelchair Brought in by: Self Location: Right Extremity Location: Leg Past Medical History PAST MEDICAL HISTORY: Asthma, GERD, High Lipids 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 Hx Family History Family History: Reviewed,noncontributory to illness, Unknown Social History Smoker: Non-Smoker Alcohol: Denies ETOH Use Drugs: Denies Drug Use Lives In: Home Constitutional: denies: chills, diaphoresis, fatigue, fever, malaise, sweats, weakness, others EENTM: denies: blurred vision, double vision, ear bleeding, ear discharge, ear drainage, ear pain, ear ringing, eye pain, eye redness, hearing loss, mouth pain, mouth swelling, nasal discharge, nose bleeding, nose congestion, nose pa in, photophobia, tearing, throat pain, throat swelling, voice changes, others Respiratory: denies: cough, hemoptysis, orthopnea, SOB at rest, shortness of breath, SOB with excertion, stridor, wheezing, others Cardiovascular: denies: chest pain, dizzy spells, diaphoresis, Dyspnea on exertion, edema, irregular heart beat, left arm pain, lightheadedness, palpitations, PND, syncope, others Gastrointestinal: denies: abdomen distended, abdominal pain, blood streaked bowels, constipated, diarrhea, dysphagia, difficulty swallowing, hematemesis, melena, nausea, poor appetite, poor fluid intake, rectal bleeding, rectal pain, vomiting, others Genitourinary: denies: abnormal vagina bleeding, burning, dyspareunia, dysuria, flank pain, frequency, hematuria, incontinence, pain, , vagina discharge, urgency, others Neurological: denies: dizziness, fainting, headache, left sided numbness, left sided weakness, numbness, paresthesia, pre-existing deficit, right sided numbness, right sided weakness, seizure, speech problems, tingling, tremors, weakness, others Musculoskeletal: reports: joint pain (Right lower extremity), joint swelling (Right lower extremity); denies: back pain, gout, muscle pain, muscle stiffness, neck pain, others Integumetry: denies: bruises, change in color, change in hair/nails, dryness, laceration, lesions, lumps, rash, wounds, others Allergic/Immunocompromised: denies: Difficulty Healing, Frequent Infections, Hi ves, Itching, others Hematologic/Lymphatic: denies: anemia, blood clots, easy bleeding, easy bruising, swollen glands, others Endocrine: denies: excessive hunger, excessive sweating, excessive thirst, excessive urination, flushing, intolerance to cold, intolerance to heat, unexplained weight gain, unexplained weight loss, others Psychiatric: denies: anxiety, bipolar disorder, depression, hopeless, panic disorder, schizophrenia, sleepless, suicidal, others All Other Systems: Reviewed and Negative Was a procedure done? Was a procedure done?: No Differential Diagnosis EXT Differential Diagnosis: Cellulitis, Deep Vein Thrombosis, Fracture, Sprain, Dislocation, DJD, Rheumatoid, Arthritis X-Ray, Labs, Meds, VS Vital Signs Date Time Temp Pulse Resp B/P (MAP) Pulse Ox O2 Delivery O2 Flow Rate FiO2 05/01/25 14:36 97.8 90 16 131/91 99 97.8 Lab Test 05/01/25 15:02 Range/Units White Blood Count 8.4 4.4-10.8 10^3/uL Red Blood Count 5.20 4.0-5.20 10^6/uL Hemoglobin 14.3 12.2-16.2 g/dL Hematocrit 42.7 36.0-46.0 % Mean Corpuscular Volume 82.0 80.0-100.0 fL Mean Corpuscular Hemoglobin 27.4 L 28.0-32.0 pg Mean Corpuscular Hemoglobin Concent 33.4 32.0-36.0 g/dL Red Cell Distribution Width 14.5 H 11.8-14.3 % Platelet Count 381 140-450 10^3/uL Mean Platelet Volume 8.2 6.9-10.8 fL Neutrophils (%) (Auto) 59.3 37.0-80.0 % Lymphocytes (%) (Auto) 29.9 10.0-50.0 % Monocytes (%) (Auto) 7.3 0.0-12.0 % Eosinophils (%) (Auto) 2.7 0.0-7.0 % Basophils (%) (Auto) 0.8 0.0-2.0 % Neutrophils # (Auto) 5.0 1.6-8.6 10 ^3/uL Lymphocytes # (Auto) 2.5 0.4-5.4 10 ^3/uL Monocytes # (Auto) 0.6 0-1.3 10 ^3/uL Eosinophils # (Auto) 0.2 0-0.8 10 ^3/uL Basophils # (Auto) 0.1 0-0.2 10 ^3/uL Nucleated Red Blood Cells 0.1 % Sodium Level 139 136-145 mmol/L Potassium Level 3.8 3.5-5.1 mmol/L Chloride Level 103 98-107 mmol/L Carbon Dioxide Level 27 20-31 mmol/L Anion Gap 9 5-15 Blood Urea Nitrogen 13 9-23 mg/dL Creatinine 0.70 0.550-1.02 mg/dL Glomerular Filtration Rate Calc 106 >90 mL/min BUN/Creatinine Ratio 18.6 10.0-20.0 Serum Glucose 78 74-106 mg/dL Calcium Level 9.1 8.7-10.4 mg/dL Current Medications Medications (Trade) Dose Ordered Sig/Greg Route Start Time Stop Time Status Last Admin Ketorolac Tromethamine (Toradol Injection) 60 mg ONCE ONCE IM 05/01/25 16:45 05/01/25 16:46 DC 05/01/25 16:48 [place] [id number] Ph: [phone] DIAGNOSTIC IMAGING Diagnostic Imaging Report : [id number] Signed PATIENT: ADRIAN RYAN ACCT: [id number] UNIT: [id number] : 1975 LOC: ER ROOM / BED: / AGE / SEX: 49 / F ADM STATUS: REG ER SERVICE 144 ORDERING PHYSICIAN: LIZZETH SPEARS HVAC CONTROLS TECHNICIAN PROCEDURE(s): RKN3 - R KNEE 3V XRAY REASON: pain ORDER NUMBER(s): [id number], ACCESSION NUMBER(s): [id number] Indication: pain Technique: XY R KNEE 3V XRAYXY Comparison: None FINDINGS/IMPRESSION: No radiographic evidence for acute fracture or dislocation. There is hjum-oy-evhylrow tricompartmental degenerative joint disease. Enthesopathy at quadriceps insertion upon the patella. Moderate suprapatellar effusion. ATED BY: LEANA GIANG MD DICTATED DATE/TIME: 05/01/25 152 SIGNED BY: LEANA GIANG MD SIGNED DATE/TIME: 05/01/25 152 CC: X-Ray, Labs, Meds, VS Comment Patient arrives alert and oriented, ABC's intact, afebrile, vital signs stable, saturating well in room air Peripheral IV insertion+ labs were ordered. CBC was ordered to exclude anemia, blood loss, or infection. BMP was ordered to exclude electrolyte abnormalities, renal failure, dehydration, hyperglycemia Diagnostic imaging ordered by me and results interpreted by radiology : Labs in the ED showed (pertinent+ and then pertinent-) Patient was given:_. Tolerated medications with no adverse reaction. Additional MDM Review of External, Non-ED records: External records reviewed. Discussion with independent historian (EMS, family) history obtained from the patient/parents (if applicable) at bedside Chronic conditions affecting care: None Social determinants of health affecting care: None Consideration of admission (observation or admission): I considered escalation of care to admission for this patient, however given the reassuring workup, the patient is safe for outpatient management. Discussion with the Radiology: No Tests considered but not performed: Prescription medication considered but not given: 12 lead EKG interpretation: Time of 1ST Reevaluation: 16:15 Reevaluation 1ST: Unchanged Patient Education/Counseling: Diagnosis, Treatment Family Education/Counseling: No Family Present Departure 1 Departure Time of Disposition: 17:19 Impression: Primary Impression: Tricompartment osteoarthritis of right knee Disposition: 01 HOME / SELF CARE / HOMELESS Condition: Fair e-Prescriptions Diclofenac Sodium (Topical) (Voltaren Arthritis Pain) 1 % Gel 4 GRAMS EX QID for 30 Days, #120 GRAMS 0 Refills Prov: LIZZETH SPEARS NP 05/01/25 Acetaminophen (Arthritis Pain Reliever) 650 Mg Tab 650 MG PO Q6HP PRN for 10 Days, #40 TAB 0 Refills Prov: LIZZETH SPEARS NP 05/01/25 Meloxicam (Meloxicam) 7.5 Mg Tab 1 TAB PO DAILY for 30 Days, #30 TAB 0 Refills Prov: LIZZETH SPEARS NP 05/01/25 Critical Care Note Critical Care Time?: No Stability Stability form required: No Heart Score Heart Score: Heart Score Response (Comments) Value History N/A 0 EKG N/A 0 Age N/A 0 Risk Factors N/A 0 Troponin N/A 0 Total 0 I personally scribed for LIZZETH SPEARS NP ([email or web address]) on 05/01/25 at 15:44. Electronically submitted by Greg Doherty ([email or web address]). I personally scribed for LIZZETH SPEARS NP ([email or web address]) on 05/01/25 at 15:56. Electronically submitted by Greg Doherty ([email or web address]). LIZZETH SPEARS NP May 01, 2025 15:44
--- NOTE | 2025-05-01 15:59 | DVH ---
CLINICAL HISTORY: r/o dvt TECHNIQUE: Color and duplex doppler imagine of the bilateral lower extremity veins was performed. Ves lucero compression and augmentation if possible was also performed. COMPARISON: None FINDINGS: Right Lower Extremity: Right common femoral vein: Normal compressibility and flow. Right superficial femoral vein: Normal compressibility and flow. Right popliteal vein: Normal compressibility and flow. Left Lower Extremity: Left common femoral vein: Normal compressibility and flow. Left superficial femoral vein: Normal compressibility and flow. Left popliteal vein: Normal compressibility and flow. IMPRESSION: NO SONOGRAPHIC EVIDENCE FOR DEEP VENOUS THROMBOSIS IN THE BILATERAL LOWER EXTREMITY VEINS.
[2025-05-01] MEDS: KETOROLAC TROMETH 60MG/2ML VIAL IM ONE (16:48)
[2025-05-01] MEDS: TRIAMCINOLONE 40MG/ML 1ML VIAL IX ONE (17:02)
[2025-05-01] MEDS ORDERED: MELO7.5T7 PO (17:20)
[2025-05-01] MEDS ORDERED: ACET650T26 PO (17:20)
[2025-05-01] MEDS ORDERED: DICL1GEL59 EX (17:20)
[2025-05-01 17:23] VITALS: BP 159/79; PULSE 86; RESP 16; TEMP 97.7; O2SAT 97
== END 2025-05-01 17:51 | disposition home or self-care (01) ==
LOC: ER 14:35
DX: M17.11 Unilateral primary osteoarthritis, right knee (principal); J45.909 Unspecified asthma, uncomplicated; K21.9 Gastro-esophageal reflux disease without esophagitis
CPT/HCPCS: 36415; 73562; 80048; 85025; 93970; 96372; 99285; J1885